=== PATIENT | female | born 1995 | race Caucasian/White ===

== ENCOUNTER 2017-01-19 00:41 | Emergency (ER) | payer BC, MEDICAID ==
[2017-01-19] MEDS ORDERED: PYRIDOXINE HCL INJ 100 MG/1 ML VIAL IM ONE (04:25)
[2017-01-19] MEDS ORDERED: FAMOTIDINE 20 MG TABLET PO ONE (04:26)
--- NOTE | 2017-01-19 04:30 | ER Document Report ---
ED GI/ - General Chief Complaint: Vomiting Stated Complaint: NAUSEA,VOMITING BLOOD,DIFFICULTY SWALLOWING Time seen by provider: 04:26 Mode of Arrival: Ambulatory Information source: Patient Notes: 21-year-old female presents to ED for nausea and vomiting this evening after she ate some tater tots and one of them felt like it got stuck in at that. She has had a sore throat since this time and felt like she vomited a little bit of blood after taken on the tater tot. 7 weeks with her first child and has been nauseated since she found her she was . TRAVEL OUTSIDE OF THE [place] IN LAST 30 DAYS: No - HPI Patient complains to provider of: , Vomiting, Other - Sore throat after choking on a tater tot Onset: This evening Timing/Duration: Sudden Quality of pain: Other - Sore throat Severity at maximum: Severe Severity in ED: Mild Pain Level: 2 LMP: 7 weeks : 1 Associated symptoms: Nausea, Vomiting, Other - Sore throat after choking on a tater tot Exacerbated by: Denies Relieved by: Denies Similar symptoms previously: Yes - yes to the nausea vomiting noted to the sore throat Recently seen / treated by doctor: Yes - Related Data Allergies/Adverse Reactions: No Known Allergies Allergy (Verified 07/22/16 15:44) Past Medical History - General Information source: Patient - Social History Smoking Status: Never Smoker Cigarette use (# per day): No Chew tobacco use (# tins/day): No Smoking Education Provided: No Frequency of alcohol use: None Drug Abuse: None Lives with: Family Family History: Reviewed & Not Pertinent Patient has suicidal ideation: No Patient has homicidal ideation: No - Past Medical History Cardiac Medical History: Reports: None Pulmonary Medical History: Reports: None EENT Medical History: Reports: None Neurological Medical History: Reports: None Endocrine Medical History: Reports: None Renal/ Medical History: Reports: None Malignancy Medical History: Reports: None GI Medical History: Reports: None Musculoskeltal Medical History: Reports None Skin Medical History: Reports None Psychiatric Medical History: Reports: None Traumatic Medical History: Reports: None Infectious Medical History: Reports: None Surgical Hx: Negative Past Surgical History: Reports: None - Immunizations Hx Diphtheria, Pertussis, Tetanus Vaccination: Yes Review of Systems - Review of Systems Constitutional: No symptoms reported EENT: Throat pain - After choking on a tater tot Cardiovascular: No symptoms reported Respiratory: No symptoms reported Gastrointestinal: Nausea, Vomiting Genitourinary: No symptoms reported Female Genitourinary: - 7 weeks Musculoskeletal: No symptoms reported Skin: No symptoms reported Hematologic/Lymphatic: No symptoms reported Neurological/Psychological: No symptoms reported Physical Exam - Vital signs Vitals: Temp Pulse Resp BP 98.5 F 80 20 117/71 01/19/17 00:53 01/19/17 00:53 01/19/17 00:53 01/19/17 00:53 Interpretation: Normal - General General appearance: Appears well, Alert - HEENT Head: Normocephalic, Atraumatic Eyes: Normal Pupils: PERRL Ears: Normal External canal: Normal Tympanic membrane: Normal Sinus: Normal Nasal: Normal Mouth/Lips: Normal Mucous membranes: Normal Pharynx: Normal Neck: Normal - Respiratory Respiratory status: No respiratory distress Chest status: Nontender Breath sounds: Normal Chest palpation: Normal - Cardiovascular Rhythm: Regular Heart sounds: Normal auscultation Murmur: No - Abdominal Inspection: Normal Distension: No distension Bowel sounds: Normal Tenderness: Nontender Organomegaly: No organomegaly - Back Back: Normal, Nontender - Extremities General upper extremity: Normal inspection, Nontender, Normal color, Normal ROM , Normal temperature General lower extremity: Normal inspection, Nontender, Normal color, Normal ROM , Normal temperature, Normal weight bearing. No: Yovana's sign - Neurological Neuro grossly intact: Yes Cognition: Normal Orientation: AAOx4 Sanders Coma Scale Eye Opening: Spontaneous Sanders Coma Scale Verbal: Oriented Sanders Coma Scale Motor: Obeys Commands Sanders Coma Scale Total: 15 Speech: Normal Motor strength normal: LUE, RUE, LLE, RLE Sensory: Normal - Psychological Associated symptoms: Normal affect, Normal mood - Skin Skin Temperature: Warm Skin Moisture: Dry Skin Color: Normal Course - Re-evaluation Re-evalutation: 01/19/17 05:23 Patient states she feels much better after her Pepcid and vitamin B 6. She states she was able to drink the water and eat luly crackers with no difficulty. She just was afraid that something was wrong because her throat was hurting after choking on the tater tot. - Vital Signs Vital signs: Temp Pulse Resp BP Pulse Ox 98.5 F 80 20 117/71 01/19/17 00:53 01/19/17 00:53 01/19/17 00:53 01/19/17 00:53 Discharge - Discharge Clinical Impression: Nausea and vomiting during prior to 22 weeks gestation, sore throat after choking on a tater tot Condition: Stable Disposition: HOME, SELF-CARE Additional Instructions: VOMITING: Vomiting (or nausea without vomiting) can be caused by many other different problems. It can mean that something's wrong with the stomach, such as ulcers or inflammation or the intestinal tract, such as appendicitis. But it can also be a symptom of a problem that has nothing to do with the stomach or intestines. Vomiting is common with severe headaches, earaches, tonsillitis, and kidney infections, etc. We see it with pneumonia or heart attacks. Drugs can cause nausea and vomiting. Many abdominal problems cause vomiting; for example, gallstones, kidney stones, pancreatitis, and intestinal obstruction ( blocked bowels). In most cases, curing the vomiting depends on fixing the problem that caused it. For temporary relief, we may use an anti-nausea medicine. For home use, we can prescribe suppositories, chewable pills, pills that dissolve in the mouth, or liquid anti-nausea drugs. If the vomiting seems to be caused by a problem in the stomach, acid-suppressing drugs may be prescribed as well. It's important to avoid dehydration. Sip small amounts of clear liquids ( soft drinks, tea, broth, etc) . Try to take fluids frequently even if you are vomiting to prevent dehydration. Take increasing amounts of fluid and when liquids are being consumed successfully, advance to small amounts of bland food (toast, soups, mashed potatoes, etc.) until you are able to resume a regular diet. Avoid aspirin, tobacco, and alcohol. If the vomiting worsens, if the problem that's making you vomit worsens, or if there's evidence of bleeding in the stomach (such as black, tarry stool, or bloody or black vomit), you should return immediately. Also, return if abdominal pain worsens or becomes localized to one area or you develop high fever. Call your doctor if you aren't improved in 24 hours. You were given vitamin B 6 IM for your nausea and vomiting and Pepcid for your heartburn. You stated you had some sore throat after a few choked on a tater tot. Please be sure to chew your food completely to prevent further choking. Follow-up with your HEEL CUTTER. FOLLOW-UP CARE: If you have been referred to a physician for follow-up care, call the physician s office for an appointment as you were instructed or within the next two days. If you experience worsening or a significant change in your symptoms, notify the physician immediately or return to the Emergency Department at any time for re-evaluation. Forms: Return to Work Referrals: DARION SHEN MD [Primary Care Provider] - Follow up as needed [facility] [Provider Group] - Follow up as needed
[2017-01-19] MEDS ORDERED: PYRIDOXINE HCL INJ 100 MG/1 ML VIAL ONE (04:57)
[2017-01-19 06:11] LABS: APPEARANCE,URINE SLIGHTLY-CLOUDY; BILIRUBIN,URINE NEGATIVE (NEGATIVE); GLUCOSE, URINE NEGATIVE (NEGATIVE); KETONES,URINE 80 mg/dL (NEGATIVE); LEUKOCYTE ESTERASE,URINE NEGATIVE (NEGATIVE); NITRITE,URINE NEGATIVE (NEGATIVE); PROTEIN,URINE NEGATIVE (NEGATIVE); URINE SPECIFIC GRAVITY 1.025; UROBILINOGEN,URINE NEGATIVE mg/dL (<2.0)
[2017-01-19 06:13] VITALS: BP 105/62
== END 2017-01-19 06:06 | disposition home or self-care (01) ==
LOC: ER 00:41
DX: R11.2 Nausea with vomiting, unspecified (principal); J02.9 Acute pharyngitis, unspecified; R13.10 Dysphagia, unspecified; Z3A.01 Less than 8 weeks gestation of pregnancy
CPT/HCPCS: 99284; 96372; 81001; J3415

== ENCOUNTER → 2017-03-10 | Outpatient (CLI) | payer BC | LOC: RAD 16:34 | PROVIDERS: ATTEND Nurse Practitioner Family | DX: O07.4 Failed attempted termination of pregnancy without complication (principal) | CPT/HCPCS: 36415; 76805; 84702; 84703 ==

== ENCOUNTER 2017-05-03 22:43 | Emergency (ER) | payer BC, MEDICAID ==
[2017-05-03] MEDS ORDERED: NORMAL SALINE 1000 ML 1,000 ML IV ONE (23:06)
[2017-05-03] MEDS ORDERED: DIPHENHYDRAMINE HCL 50 MG/ML VIAL IV ONE (23:06)
--- NOTE | 2017-05-03 23:12 | ER Document Report ---
ED General - General Mode of Arrival: Ambulatory Information source: Patient TRAVEL OUTSIDE OF THE [place] 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 Patient reports that she was looking at the computer screen when symptoms precipitated and continued to work for approximately 20 minutes despite having difficulty focusing and seeing. She claims that the episode lasted approximately 40 minutes. Patient states that she is currently feeling better and her vision has improved, but is feeling generalized numbness and 'cloudy' at this time. Patient also reports to having uncontrollable mouth and facial twitching while waiting to be seen that lasted approximately 5 minutes. Patient denies nausea or double vision. Patient is taking medication, but is not on any other medication. (AMEENA BHATIA) - Related Data Allergies/Adverse Reactions: No Known Allergies Allergy (Verified 07/22/16 15:44) Past Medical History - General Information source: Patient - Social History Smoking Status: Never Smoker Family History: Reviewed & Not Pertinent Renal/ Medical History: Reports: Hx Ovarian Cysts - right dermoid ovarian cyst ; simple left ovarian cyst. Denies: Hx Peritoneal Dialysis Past Surgical History: Reports: Hx Gynecologic Surgery - right dermoid ovarian cyst removal; July 2016 - Immunizations Hx Diphtheria, Pertussis, Tetanus Vaccination: Yes <AMEENA BHATIA - Last Filed: 05/03/17 23:06> Review of Systems - Review of Systems Constitutional: No symptoms reported EENT: See HPI, Other - seeing 'bright' light to bilateral eyes. denies: Double vision Cardiovascular: No symptoms reported Respiratory: No symptoms reported Gastrointestinal: No symptoms reported Genitourinary: No symptoms reported Female Genitourinary: No symptoms reported Musculoskeletal: See HPI, Other - uncontrollable mouth and facial movements Skin: No symptoms reported Hematologic/Lymphatic: No symptoms reported Neurological/Psychological: See HPI, Numbness - generalized, Other - 'cloudy' thinking -: Yes All other systems reviewed and negative <BHATIAAMEENA - Last Filed: 05/03/17 23:06> Physical Exam - General General appearance: Alert In distress: None - HEENT Head: Normocephalic, Atraumatic Eyes: Normal, Other - Eyes move conjugately. No lateral gaze nystagmus or double vision when focusing eyes. Extraocular movements intact: Yes Eyelashes: Normal Pupils: PERRL Neck: Normal. No: Carotid bruit - Respiratory Respiratory status: No respiratory distress Breath sounds: Normal - Cardiovascular Rhythm: Regular Heart sounds: Normal auscultation - Abdominal Inspection: Normal Distension: No distension Tenderness: Nontender - Back Back: Normal - Extremities General upper extremity: Normal inspection, Normal ROM General lower extremity: Normal inspection, Normal ROM - Neurological Neuro grossly intact: Yes Cranial nerves: No: Gaze palsy Additional motor exam normals: Other - no facial motor twitches - Psychological Associated symptoms: Normal affect, Normal mood - Skin Skin Temperature: Warm Skin Moisture: Dry Skin Color: Normal <AMEENA BHATIA - Last Filed: 05/03/17 23:06> Course <AMEENA BHATIA - Last Filed: 05/03/17 23:06> - Laboratory Result Diagrams: 05/03/17 22:59 05/03/17 22:59 <MARY ANN DONNELLY - Last Filed: 05/04/17 00:50> - Re-evaluation Re-evalutation: 05/04/17 00:47 Patient is sleeping soundly. She is awakened for repeat exam. She is feeling back to normal at this time with no visual disturbance, no dizziness, no facial twitching. (MARY ANN DONNELLY) - Vital Signs Vital signs: Temp Pulse Resp BP Pulse Ox 99.0 F 88 20 128/81 H 100 05/03/17 22:52 05/03/17 22:52 05/03/17 22:52 05/03/17 22:52 05/03/17 22:52 - Laboratory Laboratory results interpreted by me: 05/03/17 05/03/17 22:59 22:59 RBC 3.63 L Hgb 10.5 L Hct 31.7 L Creatinine 0.47 L Discharge <AMEENA BHATIA - Last Filed: 05/03/17 23:06> <MARY ANN DONNELLY - Last Filed: 05/04/17 00:50> - Discharge Clinical Impression: Visual disturbance, Facial twitching, Second trimester Condition: Stable Disposition: HOME, SELF-CARE Additional Instructions: No clear explanation for your symptoms was found. This may have been a migraine variant type of event. You should drink plenty of fluids and get plenty of rest. With your [facility] [employer]PATCH[facility] doctors in the next few days. Return if you have recurrence of those symptoms. RETURN TO THE EMERGENCY ROOM IF ANY NEW OR WORSENING SYMPTOMS. Referrals: AMBAR CUNHA MD [Primary Care Provider] - Follow up in 3-5 days Scribe Attestation: 05/04/17 00:50 I personally performed the services described in the documentation, reviewed and edited the documentation which was dictated to the scribe in my presence, and it accurately records my words and actions. (MARY ANN DONNELLY) Scribe Documentation - Scribe Written by Eleazar:: Eleazar Sullivan, 05/03/2017 [id number] acting as scribe for :: Lawrence <AMEENA BHATIA - Last Filed: 05/03/17 23:06>
[2017-05-03 23:14] LABS: ABSOLUTE EOSINOPHILS # (AUTO) 0.1 10^3/uL (0.0-0.6); ABSOLUTE LYMPHOCYTES (AUTO) 2.4 10^3/uL (0.5-4.7); ABSOLUTE MONOCYTES (AUTO) 0.7 10^3/uL (0.1-1.4); BASOPHILS % (AUTO) 0.2 % (0-2); EOSINOPHILS % (AUTO) 1.4 % (0-6); HEMATOCRIT 31.7 % (36.0-47.0); HEMOGLOBIN 10.5 g/dL (12.0-15.5); HGB HCT DIFFERENCE -0.2; LYMPHOCYTES % (AUTO) 23.6 % (13-45); MEAN CORPUSCULAR HEMOGLOBIN 29.1 pg (27.0-33.4); MEAN CORPUSCULAR HGB CONC 33.3 g/dL (32.0-36.0); MEAN CORPUSCULAR VOLUME 87 fl (80-97); MONOCYTES % (AUTO) 6.4 % (3-13); RED BLOOD COUNT 3.63 10^6/uL (3.72-5.28); RED CELL DISTRIBUTION WIDTH 13.5 % (11.5-14.0); SEGMENTED NEUTROPHILS % (AUTO) 68.4 % (42-78); WHITE BLOOD COUNT 10.3 10^3/uL (4.0-10.5)
[2017-05-03 23:27] LABS: ALANINE AMINOTRANSFERASE 32 U/L (9-52); ALBUMIN 3.8 g/dL (3.5-5.0); ALKALINE PHOSPHATASE 60 U/L (38-126); ANION GAP 9 (5-19); ASPARTATE AMINO TRANSFERASE 24 U/L (14-36); BILIRUBIN,DIRECT 0.2 mg/dL (0.0-0.4); BILIRUBIN,TOTAL 0.4 mg/dL (0.2-1.3); BLOOD UREA NITROGEN 10 mg/dL (7-20); CALCIUM 9.4 mg/dL (8.4-10.2); CARBON DIOXIDE 22 mmol/L (22-30); CHLORIDE 106 mmol/L (98-107); CREATININE RESULT 0.47 mg/dL (0.52-1.25); GLUCOSE 82 mg/dL (75-110); MAGNESIUM 1.6 mg/dL (1.6-2.3); POTASSIUM 3.8 mmol/L (3.6-5.0); SODIUM 137.1 mmol/L (137-145); TOTAL PROTEIN 6.8 g/dL (6.3-8.2)
[2017-05-03 23:53] LABS: APPEARANCE,URINE SLIGHTLY-CLOUDY; BILIRUBIN,URINE NEGATIVE (NEGATIVE); GLUCOSE, URINE NEGATIVE (NEGATIVE); KETONES,URINE NEGATIVE (NEGATIVE); LEUKOCYTE ESTERASE,URINE NEGATIVE (NEGATIVE); NITRITE,URINE NEGATIVE (NEGATIVE); PROTEIN,URINE NEGATIVE (NEGATIVE); URINE SPECIFIC GRAVITY 1.004; UROBILINOGEN,URINE NEGATIVE mg/dL (<2.0)
[2017-05-04 02:29] VITALS: BP 110/61
== END 2017-05-04 02:35 | disposition home or self-care (01) ==
LOC: ER 22:43
DX: O26.92 Pregnancy related conditions, unspecified, second trimester (principal); H53.8 Other visual disturbances; R25.3 Fasciculation; R20.0 Anesthesia of skin; Z3A.22 22 weeks gestation of pregnancy
CPT/HCPCS: 99284; 96374; 36415; 82962; 83735; 85025; 80053; 81001; J1200; J7030

== ENCOUNTER 2017-07-17 16:28 | Outpatient (CLI) | payer BC, MEDICAID ==
[2017-07-17 17:28] LABS: APPEARANCE,URINE CLEAR; BILIRUBIN,URINE NEGATIVE (NEGATIVE); GLUCOSE, URINE NEGATIVE (NEGATIVE); KETONES,URINE TRACE mg/dL (NEGATIVE); LEUKOCYTE ESTERASE,URINE NEGATIVE (NEGATIVE); NITRITE,URINE NEGATIVE (NEGATIVE); PROTEIN,URINE NEGATIVE (NEGATIVE); UROBILINOGEN,URINE NEGATIVE mg/dL (<2.0)
[2017-07-17 17:38] LABS: URINE BARBITURATES SCREEN NEGATIVE; URINE METHADONE SCREEN NEGATIVE; URINE OPIATES LOW NEGATIVE; URINE PHENCYCLIDINE SCREEN NEGATIVE
--- NOTE | 2017-07-18 15:04 | RADIOLOGY REPORT (SQ) ---
EXAM DESCRIPTION: U/S OB LIMITED COMPLETED DATE/TIME: 07/17/2017 7:56 pm REASON FOR STUDY: Cervical length due to cramping at 30 weeks COMPARISON: None. TECHNIQUE: Limited transvaginal and transabdominal grayscale ultrasound for evaluation of specific r equested obstetrical parameters. LIMITATIONS: None. FINDINGS: CERVICAL LENGTH: 3.4 cm Closed. MAIRA: 14.2 cm. FHR: 135 beats per minute. PRESENTATION: Cephalic. OTHER: Fundal placenta. IMPRESSION: LIMITED OBSTETRICAL ULTRASOUND WITH MEASURED PARAMETERS DELINEATED ABOVE. Trimester of : Third trimester - 28 weeks to delivery. TECHNICAL DOCUMENTATION: JOB ID: [id number] [employer]- All Rights Reserved
== END 2017-07-17 20:24 | disposition home or self-care (01) ==
LOC: LC 16:28
PROVIDERS: ATTEND Obstetrics & Gynecology
PROC: 4A1HXCZ Monitoring of Products of Conception, Cardiac Rate, External Approach (ICD-10-PCS; principal; 2017-07-17)
DX: O47.03 False labor before 37 completed weeks of gestation, third trimester (principal); Z3A.30 30 weeks gestation of pregnancy
CPT/HCPCS: 76815; 80307; 81001

== ENCOUNTER 2017-08-18 13:55 | Outpatient (CLI) | payer BC, MEDICAID ==
[2017-08-18 14:48] LABS: APPEARANCE,URINE CLEAR; BILIRUBIN,URINE NEGATIVE (NEGATIVE); GLUCOSE, URINE NEGATIVE (NEGATIVE); KETONES,URINE NEGATIVE (NEGATIVE); LEUKOCYTE ESTERASE,URINE NEGATIVE (NEGATIVE); NITRITE,URINE NEGATIVE (NEGATIVE); PROTEIN,URINE NEGATIVE (NEGATIVE); URINE SPECIFIC GRAVITY 1.006; UROBILINOGEN,URINE NEGATIVE mg/dL (<2.0)
[2017-08-18 15:21] LABS: URINE BARBITURATES SCREEN NEGATIVE; URINE METHADONE SCREEN NEGATIVE; URINE OPIATES LOW NEGATIVE; URINE PHENCYCLIDINE SCREEN NEGATIVE
== END 2017-08-18 15:05 | disposition home or self-care (01) ==
LOC: LC 13:55
PROVIDERS: ATTEND Obstetrics & Gynecology
PROC: 4A1HXCZ Monitoring of Products of Conception, Cardiac Rate, External Approach (ICD-10-PCS; principal; 2017-08-18)
DX: O26.893 Other specified pregnancy related conditions, third trimester (principal); R10.9 Unspecified abdominal pain; Z3A.37 37 weeks gestation of pregnancy
CPT/HCPCS: 59025; 80307; 81005

== ENCOUNTER 2017-09-01 21:13 | Inpatient (IN) | payer BC, MEDICAID ==
[2017-09-01 21:54] LABS: APPEARANCE,URINE CLEAR; BILIRUBIN,URINE NEGATIVE (NEGATIVE); GLUCOSE, URINE NEGATIVE (NEGATIVE); KETONES,URINE NEGATIVE (NEGATIVE); LEUKOCYTE ESTERASE,URINE NEGATIVE (NEGATIVE); NITRITE,URINE NEGATIVE (NEGATIVE); PROTEIN,URINE NEGATIVE (NEGATIVE); URINE SPECIFIC GRAVITY 1.005; UROBILINOGEN,URINE NEGATIVE mg/dL (<2.0)
[2017-09-01 21:56] LABS: AMNISURE (ROM) POSITIVE (NEGATIVE)
[2017-09-01] MEDS ORDERED: PENICILLIN G-K 5 MILLION UNIT VIAL ONE (22:09)
[2017-09-01 22:20] LABS: URINE BARBITURATES SCREEN NEGATIVE; URINE METHADONE SCREEN NEGATIVE; URINE OPIATES LOW NEGATIVE; URINE PHENCYCLIDINE SCREEN NEGATIVE
[2017-09-01 22:27] LABS: ABSOLUTE EOSINOPHILS # (AUTO) 0.2 10^3/uL (0.0-0.6); ABSOLUTE LYMPHOCYTES (AUTO) 2.1 10^3/uL (0.5-4.7); ABSOLUTE MONOCYTES (AUTO) 0.9 10^3/uL (0.1-1.4); ABSOLUTE NEUT (AUTO) 7.7 10^3/uL (1.7-8.2); BASOPHILS % (AUTO) 0.4 % (0-2); EOSINOPHILS % (AUTO) 1.6 % (0-6); HEMATOCRIT 31.6 % (36.0-47.0); HEMOGLOBIN 11.2 g/dL (12.0-15.5); LYMPHOCYTES % (AUTO) 19.5 % (13-45); MEAN CORPUSCULAR HEMOGLOBIN 29.7 pg (27.0-33.4); MEAN CORPUSCULAR HGB CONC 35.5 g/dL (32.0-36.0); MEAN CORPUSCULAR VOLUME 84 fl (80-97); MONOCYTES % (AUTO) 7.9 % (3-13); RED BLOOD COUNT 3.77 10^6/uL (3.72-5.28); RED CELL DISTRIBUTION WIDTH 12.9 % (11.5-14.0); SEGMENTED NEUTROPHILS % (AUTO) 70.6 % (42-78); WHITE BLOOD COUNT 10.8 10^3/uL (4.0-10.5)
[2017-09-02] MEDS ORDERED: PENICILLIN G-K 5 MILLION UNIT VIAL ONE ×4 (02:03→14:14)
[2017-09-02] MEDS ORDERED: OXYTOCIN/NORMAL SALINE 20 UNIT/1,000 ML RTUINJ IV PRN ×2 (02:17→16:57)
[2017-09-02] MEDS ORDERED: RINGERS SOLUTION,LACTATED 1,000 ML IV PRN (02:17)
[2017-09-02] MEDS ORDERED: PENICILLIN G POTASSIUM 5,000,000 UNIT in DEXTROSE 5%-WATER 100 ML IV ONE (02:30)
[2017-09-02] MEDS ORDERED: OXYTOCIN/NORMAL SALINE 20 UNIT/1,000 ML RTUINJ ONE (04:02)
[2017-09-02] MEDS ORDERED: LIDOCAINE 1% INJ-PF (10 MG/ML) 30 ML SDV ONE (04:02)
[2017-09-02] MEDS ORDERED: MISOPROSTOL 0.2 MG TABLET ONE (04:02)
[2017-09-02] MEDS ORDERED: PENICILLIN G POTASSIUM 2,500,000 UNIT in DEXTROSE 5%-WATER 50 ML IV SCH (06:30)
[2017-09-02] MEDS ORDERED: PROMETHAZINE HCL INJ 25 MG/1 ML VIAL ONE (06:58)
[2017-09-02] MEDS ORDERED: NALBUPHINE HCL INJ 10 MG/1 ML AMPULE ONE (06:58)
[2017-09-02] MEDS ORDERED: PROMETHAZINE HCL INJ 25 MG/1 ML VIAL IV ONE (07:07)
[2017-09-02] MEDS ORDERED: NALBUPHINE HCL INJ 10 MG/1 ML AMPULE INJ ONE (07:07)
[2017-09-02] MEDS ORDERED: EPHEDRINE SULFATE INJ 50 MG/1 ML AMPULE ONE (10:24)
[2017-09-02] MEDS ORDERED: BUPIVACAINE HCL 0.25 % INJ/PF (2.5 MG/1 ML) 30 ML VIAL ONE (10:24)
[2017-09-02] MEDS ORDERED: FENTANYL/BUPIVACAINE/NS/PF 200 MCG/100 ML RTUINJ EPI ONE (10:24)
--- NOTE | 2017-09-02 11:45 | L&D Progress Notes ---
PROGRESS NOTES Datetime Report Generated by CPN: 09/02/2017 11:45 PROGRESS NOTE Impression: Normal Progression of Labor Procedures: Sterile Vag Exam Plan: Continue Present Management Comment: Epidural in place-patient more comfortable. Will continue with Pitocin. VAGINAL EXAM Dilatation: 2 Dilatation: 1 Effacement: 95 Effacement: 90 Station: 0 Station: -1 MEMBRANES Membranes: Ruptured Membranes: Ruptured Amniotic Fluid Color: Clear Amniotic Fluid Color: Clear FETUS A FHR - Baseline: 135 Monitoring: External US Variability: Moderate 6-25bpm Accelerations: 15X15 Decelerations: None FHR Category: Category I : 39.5 : 39.5 Presentation: Vertex SIGNATURE SIGNATURE: [id number] Assignment: Aracelis Phillips MD Signature: with User ID: [email or web address] : with User ID: [email or web address] : Alex personally evaluated and examined the patient in conjunction with the MLP and agree with the assessment, treatment plan and disposition.
[2017-09-02] MEDS ORDERED: BENZOCAINE/MENTHOL AEROSOL SPRAY 56 ML TOP PRN (16:57)
[2017-09-02] MEDS ORDERED: ACETAMINOPHEN WITH CODEINE #3 TABLET PO PRN ×2 (16:57)
[2017-09-02] MEDS ORDERED: DIPH/PERTUSS(ACELL)/TETANUS VAC/PF 0.5 ML SYR (>=10YO) IM PRN (16:57)
[2017-09-02] MEDS ORDERED: GLYCERIN/WITCH HAZEL LEAF 1 EACH MED..PAD TP PRN (16:57)
[2017-09-02] MEDS ORDERED: ACETAMINOPHEN 650 MG SUPP.RECT PR PRN (16:57)
[2017-09-02] MEDS ORDERED: MEASLES,MUMPS&RUBELLA VACC/PF 0.5 ML VIAL SUBCUT PRN (16:57)
[2017-09-02] MEDS ORDERED: PSEUDOEPHEDRINE HCL 30 MG TABLET PO PRN (16:57)
[2017-09-02] MEDS ORDERED: DIPHENHYDRAMINE HCL 25 MG CAPSULE PO PRN (16:57)
[2017-09-02] MEDS ORDERED: PROMETHAZINE HCL INJ 25 MG/1 ML VIAL IV PRN (16:57)
[2017-09-02] MEDS ORDERED: NA PHOS,M-B/NA PHOS,DI-BA (ADULT) 133 ML ENEMA PR PRN (16:57)
[2017-09-02] MEDS ORDERED: PROMETHAZINE HCL 25 MG TABLET PO PRN (16:57)
[2017-09-02] MEDS ORDERED: MAGNESIUM HYDROXIDE SUSP 30 ML UDCUP PO PRN (16:57)
[2017-09-02] MEDS ORDERED: DIBUCAINE 1% OINTMENT 28 GM TP PRN (16:57)
[2017-09-02] MEDS ORDERED: PROMETHAZINE HCL 25 MG SUPP.RECT PR PRN (16:57)
[2017-09-02] MEDS ORDERED: ZOLPIDEM TARTRATE 5 MG TABLET PO PRN (16:57)
[2017-09-02] MEDS ORDERED: AMPICILLIN SOD/SULBACTAM 3 GM VIAL IV ONE (17:23)
[2017-09-02] MEDS ORDERED: AMPICILLIN SOD/SULBACTAM 3 GM VIAL ONE (17:29)
[2017-09-02] MEDS ORDERED: IBUPROFEN 800 MG TABLET ONE (17:30)
[2017-09-02] MEDS ORDERED: AMPICILLIN SOD/SULBACTAM 3 GM VIAL IV SCH (17:35)
--- NOTE | 2017-09-02 17:45 | Delivery Summary ---
Del Sum A-C Datetime Report Generated by CPN: 09/02/2017 17:45 DELIVERY PERSONNEL DELIVERY PERSONNEL: [id number] Delivery Doctor:: Patricia Rousseau CNM Labor and Delivery Nurse:: Delores Aguero RNsawmilling operator Nurse:: MIRTHA Hall Nursery Nurse:: Demetrio Moran RN Changer Fixer/JUSTUS: Emily Heart CNA II Additional Personnel: : Mark Harry RN MATERNAL INFORMATION Delivery Anesthesia: Epidural Medications After Delivery: Pitocin Bolus-Please Comment; Pitocin Drip 20 Units/1000ml NSS Meds After Delivery Comment: Pitocin 20 Units in 1 L NS bolusing per order Estimated Blood Loss (ml): 250 Maternal Complications: Premature Rupture of Membranes Other Maternal Complications: Maternal temp-101.4 Provider Comments: viable female in vertex OA to GAGE at 1609 under epidural anesthesia. Spontaneous respirations and cry. 2-vessel cord. Apgars 7-8. Cord clamped x2, after 2 min delay, then cut by CNM as baby pink but not crying vigorously. Placenta, membranes, and cord expelled at 1613, Moyer presentation. 2nd degree vaginal-perineal laceration repaired as noted above, under epidural anesthesia. FF at U-3, lochia small. Patient tolerated procedure well. Maternal temp noted after delivery. Baby taken to nursery with elevated temp. Patient tolerated procedure well. LABOR SUMMARY EDC: 09/04/2017 00:00 No. Babies in Womb: 1 Attempted: No Labor Anesthesia: Epidural LABOR INFORMATION Reason for Induction: Premature Rupture of Membranes Onset of Labor: 09/02/2017 11:00 Complete Dilatation: 09/02/2017 14:54 Oxytocin: Induction Group B Beta Strep: positive Antibiotics # of Doses: 5 Antibiotics Time of Last Dose: 1415 Name of Antibiotic Given: Penicillin Steroids Given: None Reason Steroids Not Administered: Not Applicable MEMBRANES Membranes Rupture Method: Spontaneous Rupture of Membranes: 09/01/2017 20:45 Length of Rupture (hr): 19.40 Amniotic Fluid Color: Clear Amniotic Fluid Amount: Small Amniotic Fluid Odor: Normal STAGES OF LABOR Stage 1 hr: 3 Stage 1 min: 54 Stage 2 hr: 1 Stage 2 min: 15 Stage 3 hr: 0 Stage 3 min: 4 Total Time in Labor hr: 5 Total Time in Labor min: 13 VAGINAL DELIVERY Episiotomy: None Laceration #1: Perineal; Vaginal Laceration Extension #1: Second Degree Laceration Repair: Yes Laceration Repair Note: Continuous stitches w 2-0 Chromic Sponge Count Correct: N/A Sharps Count Correct: Yes CSECTION DELIVERY Primary Indication: N/A Secondary Indication: N/A CSection Incidence: N/A Labor: N/A Elective: N/A CSection Incision: N/A BABY A INFORMATION Delivery Date/Time: 09/02/2017 16:09 Method of Delivery: Vaginal Born in Route : No : N/A Forceps: N/A Vacuum Extraction: N/A Shoulder Dystocia : No PRESENTATION/POSITION BABY A Presentation: Cephalic Cephalic Presentation: Vertex Vertex Position: Right Occipital Anterior Breech Presentation: N/A PLACENTA INFORMATION BABY A Placenta Delivery Time : 09/02/2017 16:13 Placenta Method of Delivery: Spontaneous Placenta Status: Delivered SCORES BABY A Heart Rate 1 min: >100 bpm Resp Effort 1 min: Slow, Irregular Reflex Irritability 1 min: Grimace Muscle Tone 1 min: Active Motion Color 1 min: Body [place], Extremities Blue Resuscitation Effort 1 min: Tactile Stimulation SCORE 1 MIN: 7 Heart Rate 5 min: >100 bpm Resp Effort 5 min: Slow, Irregular Reflex Irritability 5 min: Cough or Sneeze or Pulls Away Muscle Tone 5 min: Some Flexion of Extremities Color 5 min: Completely [place] SCORE 5 MIN: 8 INFORMATION BABY A Gestational Age at Delivery: 39.5 Gestational Status: Full Term- 39- 40.6 Weeks Infant Outcome : Liveborn Condition : Stable Sex: Female IDENTIFICATION BABY A Verification Date/Time: 09/02/2017 16:22 ID Band Number: [id number] Mother's Name Verified: Yes RN Verifying : CDerick Aguero, FAHEEM, Esther Harry RN WEIGHT/LENGTH BABY A Birthweight (gm): 3630 Infant Weight (lb): 8 Weight (oz): 0 Length (in): 21.00 Infant Length (cm): 53.34 CORD INFORMATION BABY A No. Cord Vessels: 3 Nuchal Cord : N/A Cord Blood Taken: Yes-For Storage (Mom's Blood type +) Infant Suction: Mouth; Nose ASSESSMENT BABY A Infant Complications: None Skin to Skin: Yes Skin to Skin Time (min): 10 BABY B INFORMATION : N/A SIGNATURES Assignment: Aracelis Phillips MD Signature: with User ID: [email or web address] : I personally evaluated and examined the patient in conjunction with the MLP and agree with the assessment, treatment plan and disposition.
--- NOTE | 2017-09-02 18:36 | Admission Physical ---
Datetime Report Generated by CPN: 09/02/2017 18:36 CURRENT ADMISSION Chief Complaint: Suspected Ruptured Membranes Indication for Induction: Not Applicable Indication for Induction: Term, Intrauterine ; No Active Labor; Ruptured Membranes Admit Plan: Admit to Unit; Initiate Labor Augmentation Protocol ALLERGIES Medication Allergies: No Medication Allergies: No Known Allergies (09/01/2017) Medication Allergies: No Known Allergies (07/17/2017) Medication Allergies: No Known Allergies (07/22/2016) Latex: No Latex Allergies Food Allergies: no Environmental Allergies: no OBSTETRICAL HISTORY EDC: 09/04/2017 00:00 : 1 Para: 0 Term: 0 : 0 SAB: 0 IAB: 0 Ectopic: 0 Livin Cesareans: 0 VBACs: 0 Multiple Births: 0 Gestational Diabetes: No Rh Sensitization: No Incompetent Cervix: No LION: No Infertility: No ART Treatment: No Uterine Anomaly: No IUGR: No Hx Previous C/S: No Macrosomia: No Hx Loss/Stillborn: No PIH: No Hx : No Placenta Previa/Abruption: No Depression/PP Depression: No PTL/PROM: No Post Hemorrhage: No Current Procedures: Ultrasound; NST Obstetrical History Comments: G1: current SEE RECORDS Alcohol: No Marijuana : No Cocaine: No Other Illicit Drugs: No Cigarettes: Never Smoker. [id number] MEDICAL HISTORY Diabetes: No Blood Transfusion: No Pulmonary Disease (Asthma, TB): No Breast Disease: No Hypertension: No Sql Ssrs Developer Surgery: No Heart Disease: No Hosp/Surgery: Yes Autoimmune Disorder: No Anesthetic Complications: No Kidney Disease: No Abnormal Pap Smear: No Neuro/Epilepsy: No Psychiatric Disorders: Yes Other Medical Diseases: No Hepatitis/Liver Disease: No Significant Family History: No Varicosities/Phlebitis: No Trauma/Violence : No Thyroid Dysfunction: No Medical History Comments: RA lap R cystectomy _ L ovarian cystectomy 07/2016; depression INFECTIOUS HISTORY Gonorrhea: Yes Genital Herpes: No Chlamydia: Yes Tuberculosis: No Syphilis: No Hepatitis: No HIV/AIDS Exposure: No Rash or Viral Illness: No HPV: No Infectious History Comments: gonorrhea, chlamydia 03/2016 PHYSICAL EXAM General: Normal HEENT: Normal Neurologic: Normal Thyroid: Deferred Heart: Normal Lungs: Normal Breast: Deferred Back: Normal Abdomen: Normal Genitourinary Exam: Normal Extremities: Normal DTRs: Normal Pelvic Type: Adequate Vital Signs: Reviewed; Within Normal Limits VAGINAL EXAM Dilatation: 2 Dilatation: 1 Effacement: 95 Effacement: 90 Station: 0 Station: -1 MEMBRANES Membranes: Ruptured Membranes: Ruptured Amniotic Fluid Color: Clear Amniotic Fluid Color: Clear FETUS A EGA: 39.5 Monitoring: External US FHR- Baseline: 140 Variability: Moderate 6-25bpm Accelerations: 15X15 Decelerations: None FHR Category: Category I Presentation: Vertex PLANS FOR LABOR AND DELIVERY Labor and Delivery: None Pain Management: Epidural Feeding Preference: Breast Benefit of Breast Feed Discussed: Yes Circumcision: N/A INFORMED CONSENT Signature: with User ID: [email or web address] : I personally evaluated and examined the patient in conjunction with the MLP and agree with the assessment, treatment plan and disposition. : I personally evaluated and examined the patient in conjunction with the MLP and agree with the assessment, treatment plan and disposition.
[2017-09-02] MEDS: FERROUS SULFATE 325 MG TABLET PO SCH (20:16)
[2017-09-02] MEDS: DOCUSATE SODIUM 100 MG CAPSULE PO SCH (20:16)
[2017-09-02] MEDS: IBUPROFEN 800 MG TABLET PO SCH (22:47)
[2017-09-02] MEDS: FAMOTIDINE 20 MG TABLET PO SCH (22:47)
[2017-09-03] MEDS: AMPICILLIN SODIUM/SULBACTAM NA 3 GM in NORMAL SALINE 100 ML IV SCH ×2 (01:52→09:39)
[2017-09-03] MEDS: IBUPROFEN 800 MG TABLET PO SCH ×3 (06:17→21:08)
[2017-09-03 08:18] LABS: HEMATOCRIT 26.8 % (36.0-47.0); HGB HCT DIFFERENCE 0.5; MEAN CORPUSCULAR HEMOGLOBIN 29.2 pg (27.0-33.4); MEAN CORPUSCULAR HGB CONC 33.9 g/dL (32.0-36.0); MEAN CORPUSCULAR VOLUME 86 fl (80-97); RED BLOOD COUNT 3.11 10^6/uL (3.72-5.28); WHITE BLOOD COUNT 12.5 10^3/uL (4.0-10.5)
--- NOTE | 2017-09-03 08:37 | PDOC PROGRESS REPORT ---
Subjective-OB Subjective: Post Delivery Day: 1 22 year old. Denies any needs at this time, states lochia is stable, pain well controlled, voiding without difficulty. Physical Exam (OB) Vital Signs: Temp Pulse Resp BP Pulse Ox 98.1 F 101 H 18 117/66 98 09/03/17 04:06 09/03/17 04:06 09/03/17 04:06 09/03/17 04:06 09/03/17 04:06 Intake & Output 09/02/17 09/03/17 09/04/17 06:59 06:59 06:59 Weight 95.2 kg - Lochia Lochia Amount: Small 10-25 ml Lochia Color: Rubra/Red - Abdomen Description: Soft, Round Hernia Present: No Fundal Description: Firm, Midline Fundal Height: u/u - u/2 Assessment and Plan(PN) - Assessment and Plan (1) Vaginal delivery Is this a current diagnosis for this admission?: Yes Plan: routine pp care cbc pending - Time Spent with Patient Time with patient: Less than 15 minutes Critical Time spent with patient: Less than 15 minutes Medications reviewed and adjusted accordingly: Yes - Disposition Anticipated Discharge: Home Within: within 24 hours
[2017-09-03 08:55] LABS: HEMOGLOBIN 9.1 g/dL (12.0-15.5)
[2017-09-03] MEDS: PRENATAL VITAMIN W-O CA NO5/FE FUMARATE/FA CAPSULE PO SCH (09:32)
[2017-09-03] MEDS: DOCUSATE SODIUM 100 MG CAPSULE PO SCH ×2 (09:33→17:55)
[2017-09-03] MEDS: FERROUS SULFATE 325 MG TABLET PO SCH ×2 (09:33→17:55)
[2017-09-03] MEDS: SENNOSIDES/DOCUSATE 8.6-50 MG 1 EACH TABLET PO SCH (09:33)
[2017-09-03] MEDS: FAMOTIDINE 20 MG TABLET PO SCH ×2 (09:33→21:08)
[2017-09-03] MEDS ORDERED: LORATADINE 10 MG TABLET PO ONE (14:00)
[2017-09-04] MEDS: IBUPROFEN 800 MG TABLET PO SCH ×2 (06:03→13:53)
[2017-09-04 08:38] VITALS: BP 132/75
[2017-09-04] MEDS: DOCUSATE SODIUM 100 MG CAPSULE PO SCH ×2 (09:27→18:06)
[2017-09-04] MEDS: PRENATAL VITAMIN W-O CA NO5/FE FUMARATE/FA CAPSULE PO SCH (09:27)
[2017-09-04] MEDS: FERROUS SULFATE 325 MG TABLET PO SCH ×2 (09:27→18:06)
[2017-09-04] MEDS: FAMOTIDINE 20 MG TABLET PO SCH (09:28)
[2017-09-04] MEDS: SENNOSIDES/DOCUSATE 8.6-50 MG 1 EACH TABLET PO SCH (09:28)
[2017-09-04] MEDS ORDERED: LORATADINE 10 MG TABLET PO ONE (10:00)
--- NOTE | 2017-09-04 12:03 | PDOC DISCHARGE SUMMARY ---
Final Diagnosis Discharge Date: 09/04/17 - Final Diagnosis (1) Vaginal delivery Is this a current diagnosis for this admission?: Yes Discharge Data - Discharge Medication Home Medications: No122/Iron/Folic Acid [ Multi Tablet] 1 each PO DAILY 07/17/17 Ranitidine HCl [Zantac 150 mg Tablet] 1 tab PO DAILY PRN 08/18/17 Reason(s) for Admission: PROM, Group B Strep Positive Procedures: NST Intrapartum Procedure(s): Spontaneous Vaginal Delivery Complication(s): Laceration-Vaginal, Laceration-Perineal Laceration-Degree: 2nd - Diagnosis Test Laboratory: Temp Pulse Resp BP Pulse Ox 97.9 F 100 18 132/75 H 98 09/04/17 08:38 09/04/17 08:35 09/04/17 08:35 09/04/17 08:35 09/04/17 08:35 09/01/17 09/01/17 09/03/17 21:33 22:13 07:12 RBC 3.77 3.11 L Hgb 11.2 L 9.1 L D Hct 31.6 L 26.8 L Urine Opiates Screen NEGATIVE - Discharge information/Instructions Discharge Activity: Activity As Tolerated, Balance Activity w/Rest, No Lifting Over 10 Pounds, No Lifting/Push/Pulling, Pelvic Rest, No tub bath Discharge Diet: Regular Disposition: HOME, SELF-CARE Follow up with: [facility] in: 4
== END 2017-09-04 19:30 | disposition home or self-care (01) | DRG 775 ==
LOC: LC 21:13 → LR 21:59 → 2S 09-02 18:30
PROVIDERS: ADMIT Obstetrics & Gynecology; ATTEND Obstetrics & Gynecology
PROC: 10E0XZZ Delivery of Products of Conception, External Approach (ICD-10-PCS; principal; 2017-09-02)
PROC: 0KQM0ZZ Repair Perineum Muscle, Open Approach (ICD-10-PCS; 2017-09-02)
DX: O42.02 Full-term premature rupture of membranes, onset of labor within 24 hours of rupture (principal); O99.824 Streptococcus B carrier state complicating childbirth; O70.1 Second degree perineal laceration during delivery; Z3A.39 39 weeks gestation of pregnancy; Z37.0 Single live birth
CPT/HCPCS: 36415; 80307; 81005; 84112; 85025; 85027; 86592; 86850; 86900; 86901; 88307; J0295; J2300; J2540; J2550; J2590; J3490

== ENCOUNTER 2018-07-14 23:21 | Emergency (ER) | payer BC, MEDICAID ==
[2018-07-14 23:37] VITALS: BP 125/83
[2018-07-14] MEDS ORDERED: KETOROLAC TROMETHAMINE INJ/PF 30 MG/1 ML SDV IV ONE (23:49)
[2018-07-14] MEDS ORDERED: ONDANSETRON HCL INJ/PF 4 MG/2 ML SDV IV ONE (23:49)
[2018-07-14] MEDS ORDERED: NORMAL SALINE 1000 ML 1,000 ML IV ONE (23:50)
--- NOTE | 2018-07-14 23:51 | ER Document Report ---
ED Medical Screen (RME) - General Chief Complaint: Other Stated Complaint: NAUSEA/ RIGHT SIDE PAIN Time Seen by Provider: 07/14/18 23:49 Notes: 23-year-old female, chief complaint of sharp right upper quadrant pain with nausea, symptoms started at 8 PM and has not quit, symptoms started about 1 hour after eating beef stew. She denies history of the same, she denies vomiting, fever, other areas of pain. 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 TRAVEL OUTSIDE OF THE [place] IN LAST 30 DAYS: No - Related Data Allergies/Adverse Reactions: No Known Allergies Allergy (Verified 09/01/17 21:25) Past Medical History - Social History Frequency of alcohol use: Occasional Renal/ Medical History: Reports: Hx Ovarian Cysts - right dermoid ovarian cyst ; simple left ovarian cyst. Denies: Hx Peritoneal Dialysis Past Surgical History: Reports: Hx Gynecologic Surgery - right dermoid ovarian cyst removal; July 2016 - Immunizations Hx Diphtheria, Pertussis, Tetanus Vaccination: Yes History of Influenza Vaccine for 08/2017 - 01/2018 Season: Refused Physical Exam - Vital signs Vitals: Temp Pulse Resp BP Pulse Ox 98.3 F 88 14 125/83 99 07/14/18 23:35 07/14/18 23:35 07/14/18 23:35 07/14/18 23:35 07/14/18 23:35 - Abdominal Tenderness: Tender - Tender in right upper quadrant and epigastric areas, remaining abdomen is benign, exam limited by sitting position Course - Vital Signs Vital signs: Temp Pulse Resp BP Pulse Ox 98.3 F 88 14 125/83 99 07/14/18 23:35 07/14/18 23:35 07/14/18 23:35 07/14/18 23:35 07/14/18 23:35
[2018-07-15 00:52] LABS: ABSOLUTE EOSINOPHILS # (AUTO) 0.1 10^3/uL (0.0-0.6); ABSOLUTE LYMPHOCYTES (AUTO) 2.6 10^3/uL (0.5-4.7); ABSOLUTE MONOCYTES (AUTO) 0.6 10^3/uL (0.1-1.4); ABSOLUTE NEUT (AUTO) 8.7 10^3/uL (1.7-8.2); BASOPHILS % (AUTO) 0.2 % (0-2); EOSINOPHILS % (AUTO) 1.1 % (0-6); HEMATOCRIT 39.4 % (36.0-47.0); HEMOGLOBIN 13.1 g/dL (12.0-15.5); LYMPHOCYTES % (AUTO) 21.4 % (13-45); MEAN CORPUSCULAR HEMOGLOBIN 28.2 pg (27.0-33.4); MEAN CORPUSCULAR HGB CONC 33.2 g/dL (32.0-36.0); MEAN CORPUSCULAR VOLUME 85 fl (80-97); MONOCYTES % (AUTO) 4.9 % (3-13); PLATELET COUNT 272 10^3/uL (150-450); RED BLOOD COUNT 4.64 10^6/uL (3.72-5.28); RED CELL DISTRIBUTION WIDTH 12.5 % (11.5-14.0); SEGMENTED NEUTROPHILS % (AUTO) 72.4 % (42-78); TOTAL CELLS COUNTED % (AUTO) 100 %
[2018-07-15 01:18] LABS: ALANINE AMINOTRANSFERASE 24 U/L (9-52); ALBUMIN 4.3 g/dL (3.5-5.0); ALKALINE PHOSPHATASE 60 U/L (38-126); ANION GAP 15 (5-19); ASPARTATE AMINO TRANSFERASE 20 U/L (14-36); BILIRUBIN,DIRECT 0.3 mg/dL (0.0-0.4); BILIRUBIN,TOTAL 0.7 mg/dL (0.2-1.3); BLOOD UREA NITROGEN 14 mg/dL (7-20); CALCIUM 9.2 mg/dL (8.4-10.2); CARBON DIOXIDE 24 mmol/L (22-30); CHLORIDE 104 mmol/L (98-107); GLUCOSE 70 mg/dL (75-110); LIPASE 131.1 U/L (23-300); POTASSIUM 3.8 mmol/L (3.6-5.0); SODIUM 142.7 mmol/L (137-145); TOTAL PROTEIN 6.6 g/dL (6.3-8.2)
[2018-07-15 01:53] LABS: APPEARANCE,URINE CLEAR; BILIRUBIN,URINE NEGATIVE (NEGATIVE); COLOR,URINE YELLOW; GLUCOSE, URINE NEGATIVE (NEGATIVE); KETONES,URINE NEGATIVE (NEGATIVE); LEUKOCYTE ESTERASE,URINE NEGATIVE (NEGATIVE); NITRITE,URINE NEGATIVE (NEGATIVE); PROTEIN,URINE NEGATIVE (NEGATIVE); URINE SPECIFIC GRAVITY 1.016; UROBILINOGEN,URINE NEGATIVE mg/dL (<2.0)
[2018-07-15] MEDS ORDERED: ONDANSETRON HCL INJ/PF 4 MG/2 ML SDV IV ONE (01:58)
[2018-07-15] MEDS ORDERED: HYDROMORPHONE HCL INJ/PF 2 MG/ML AMPULE IV ONE (01:58)
--- NOTE | 2018-07-15 02:05 | ER Document Report ---
ED General - General Chief Complaint: Other Stated Complaint: NAUSEA/ RIGHT SIDE PAIN Time Seen by Provider: 07/14/18 23:49 Notes: Patient is a pleasant 23-year-old female presents with complaint of right upper quadrant abdominal pain that started after eating beef stew. She also started having nausea and some vomiting. Symptoms started around 8 PM. No fevers. No diarrhea. No blood in her emesis. 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 She denies any pain in the right lower quadrant. She denies ever being a problem in the past. No other complaints at this time. TRAVEL OUTSIDE OF THE [place] IN LAST 30 DAYS: No - Related Data Allergies/Adverse Reactions: No Known Allergies Allergy (Verified 09/01/17 21:25) Past Medical History - Social History Smoking Status: Former Smoker Frequency of alcohol use: Occasional Drug Abuse: None Family History: Reviewed & Not Pertinent Patient has suicidal ideation: No Patient has homicidal ideation: No Renal/ Medical History: Reports: Hx Ovarian Cysts - right dermoid ovarian cyst ; simple left ovarian cyst. Denies: Hx Peritoneal Dialysis Past Surgical History: Reports: Hx Gynecologic Surgery - right dermoid ovarian cyst removal; July 2016 - Immunizations Hx Diphtheria, Pertussis, Tetanus Vaccination: Yes Review of Systems - Review of Systems Notes: My Normal Review Basic REVIEW OF SYSTEMS: CONSTITUTIONAL : Denies fever, chills, or sweats. Denies recent illness. EENT: Denies eye, ear, throat, or mouth pain or symptoms. Denies nasal or sinus congestion. RESPIRATORY: Denies cough, cold, or chest congestion. Denies shortness of breath, difficulty breathing, or wheezing. GASTROINTESTINAL: Right upper quadrant abdominal pain. Some nausea and vomiting. GENITOURINARY: Denies difficulty urinating, painful urination, burning, frequency, or blood in urine. FEMALE GENITOURINARY: Denies vaginal bleeding, abnormal or irregular periods. LMP: MUSCULOSKELETAL: Denies neck or back pain or joint pain or swelling. SKIN: Denies rash or skin lesions. NEUROLOGICAL: Denies altered mental status or loss of consciousness. Denies headache. Denies weakness or paralysis or loss of use of either side. Denies problems with gait or speech. Denies sensory or motor loss. ALL OTHER SYSTEMS REVIEWED AND NEGATIVE. Physical Exam - Vital signs Vitals: Temp Pulse Resp BP Pulse Ox 98.3 F 88 14 125/83 99 08/14/18 23:35 07/14/18 23:35 07/14/18 23:35 07/14/18 23:35 07/14/18 23:35 - Notes Notes: General Appearance: Well nourished, alert, cooperative, no acute distress, mild to moderate obvious discomfort. Vitals: reviewed, See vital signs table. Head: no swelling or tenderness to the head Eyes: PERRL, EOMI, Conjuctiva clear Mouth: No decreasd moisture Lungs: No wheezing, No rales, No rhonci, No accessory muscle use, good air exchange bilaterally. Heart: Normal rate, Regular rythm, No murmur, no rub Abdomen: Normal BS, soft, No rigidity, normal pain that is focal to the right upper quadrant. No pain to the epigastric region or lower abdomen. No guarding , no rebound, no abdominal masses, no organomegaly Extremities: strength 5/5 in all extremities, good pulses in all extremities, no swelling or tenderness in the extremities, no edema. Skin: warm, dry, appropriate color, no rash Neuro: speech clear, oriented x 3, normal affect, responds appropriately to questions. Course - Re-evaluation Re-evalutation: 07/15/18 04:58 Patient's laboratory evaluation is unremarkable. Her ultrasound does not show any evidence of problems with the gallbladder however her abdominal exam and history suggests that it is her gallbladder is causing her pain. Patient's pain and nausea are much improved after medications. I talked to her at length about avoiding fatty foods and fried foods. I will refer to surgery clinic for reevaluation. I informed her that she may eventually require a HIDA scan to further delineate the function of her gallbladder. I informed her return to ER immediately if she has recurrent pains, vomiting, fevers, or feels unwell. Patient agrees with plan will be discharged home. Dictation of this chart was performed using voice recognition software; therefore, there may be some unintended grammatical errors. - Vital Signs Vital signs: Temp Pulse Resp BP Pulse Ox 98.3 F 88 14 125/83 99 07/14/18 23:35 07/14/18 23:35 07/14/18 23:35 07/14/18 23:35 07/14/18 23:35 - Laboratory Result Diagrams: 07/15/18 00:02 07/15/18 00:02 Laboratory results interpreted by me: 07/15/18 07/15/18 00:02 00:02 WBC 12.0 H Absolute Neutrophils 8.7 H Glucose 70 L Discharge - Discharge Clinical Impression: Abdominal pain Qualifiers: Abdominal location: right upper quadrant Qualified Code(s): R10.11 - Right upper quadrant pain Condition: Good Disposition: HOME, SELF-CARE Additional Instructions: I suspect your pain is related to your gallbladder. Please follow up with the surgery clinic (Dr. Aldana). Call the office this morning to make a close follow up appointment. Please return to the ER immediately if you develop recurring pain, fevers, or recurring vomiting. Please eat a very bland diet and avoid any foods to are fried or have any fat in them. Prescriptions: Ondansetron [Zofran Odt 4 mg Tablet] 1 tab PO Q4H PRN #15 tab.rapdis PRN Reason: For Nausea/Vomiting Referrals: AMBAR ALDANA MD [ACTIVE STAFF] - Follow up in 3-5 days
--- NOTE | 2018-07-15 02:18 | RADIOLOGY REPORT (SQ) ---
EXAM DESCRIPTION: US ABDOMEN LIMITED COMPLETED DATE/TME: 07/14/2018 23:50 CLINICAL HISTORY: 23 years, Female, RUQ pain,nausea COMPARISON: None. TECHNIQUE: Grayscale and Doppler sonogram of the abdomen LIMITATIONS: None. FINDINGS: Pancreas: Visualized portion is unremarkable. Aorta: Visualized portion is unremarkable. IVC: Visualized portion is unremarkable. Liver: Parenchyma: Homogenous echotexture. Length: 15.8 cm. Main portal vein: Normal directional flow. Gallbladder: Intraluminal gallstones: Negative. Wall: No thickening. Sonographic Guallpa sign: Negative. Common bile duct: Diameter: 0.3 cm. Right kidney: Length: 11.1 cm. No hydronephrosis. IMPRESSION: Unremarkable abdominal ultrasound 2010 [employer]- All Rights Reserved
== END 2018-07-15 03:25 | disposition home or self-care (01) ==
LOC: ER 23:21
DX: R10.11 Right upper quadrant pain (principal); R11.2 Nausea with vomiting, unspecified; Z87.891 Personal history of nicotine dependence
CPT/HCPCS: 96376; 99284; 96361; 96374; 96375; 36415; 83690; 85025; 81025; 80053; 81001; 76705; J1885; J1170; J2405; J7030

== ENCOUNTER 2018-07-29 09:30 | Day surgery (SDC) | payer BC ==
[2018-07-27 10:02] LABS: HEMATOCRIT 39.3 % (36.0-47.0); HEMOGLOBIN 13.4 g/dL (12.0-15.5); MEAN CORPUSCULAR HEMOGLOBIN 28.8 pg (27.0-33.4); MEAN CORPUSCULAR HGB CONC 34.1 g/dL (32.0-36.0); MEAN CORPUSCULAR VOLUME 85 fl (80-97); PLATELET COUNT 254 10^3/uL (150-450); RED BLOOD COUNT 4.65 10^6/uL (3.72-5.28); RED CELL DISTRIBUTION WIDTH 12.5 % (11.5-14.0); WHITE BLOOD COUNT 4.2 10^3/uL (4.0-10.5)
[2018-07-27 10:32] LABS: ALANINE AMINOTRANSFERASE 23 U/L (9-52); ALBUMIN 4.2 g/dL (3.5-5.0); ALKALINE PHOSPHATASE 50 U/L (38-126); AMYLASE 39 U/L (30-110); ANION GAP 12 (5-19); ASPARTATE AMINO TRANSFERASE 21 U/L (14-36); BILIRUBIN,DIRECT 0.2 mg/dL (0.0-0.4); BILIRUBIN,TOTAL 0.7 mg/dL (0.2-1.3); BLOOD UREA NITROGEN 14 mg/dL (7-20); CALCIUM 9.4 mg/dL (8.4-10.2); CARBON DIOXIDE 28 mmol/L (22-30); CHLORIDE 103 mmol/L (98-107); GLUCOSE 101 mg/dL (75-110); POTASSIUM 4.4 mmol/L (3.6-5.0); SODIUM 142.8 mmol/L (137-145)
[~2018-07-29 09:30] MED LIST: ACETAMINOPHEN 325 MG TABLET PO PRN; CEFAZOLIN 1 GM/D5W RTU 1 GM/50 ML RTUPB IV PRN; LACTATED RINGERS 1000 ML IV PRN; LIDOCAINE 0.5% INJ-PF (5 MG/ML) 50 ML SDV SUBCUT PRN
[2018-07-29] MEDS ORDERED: DEXAMETHASONE SOD PHOSPHATE INJ 4 MG/1 ML VIAL ONE (09:45)
[2018-07-29] MEDS ORDERED: NEOSTIGMINE METHYLSULFATE 10 MG/10 ML VIAL ONE (09:45)
[2018-07-29] MEDS ORDERED: ONDANSETRON HCL INJ/PF 4 MG/2 ML SDV ONE (09:45)
[2018-07-29] MEDS ORDERED: ROCURONIUM BROMIDE INJ 50 MG/5 ML VIAL IV ONE (09:45)
[2018-07-29] MEDS ORDERED: GLYCOPYRROLATE 1 MG/5 ML SYRINGE ONE (09:45)
[2018-07-29] MEDS ORDERED: BUPIVACAINE HCL 0.5 % INJ/PF 30 ML SDV ONE (12:12)
[2018-07-29] MEDS ORDERED: FENTANYL CITRATE INJ/PF 250 MCG/5 ML AMPULE ONE (14:01)
[2018-07-29] MEDS ORDERED: ACETAMINOPHEN 1,000 MG/100 ML RTUPB IV ONE (14:02)
[2018-07-29] MEDS ORDERED: MIDAZOLAM 2 MG/2 ML INJ ONE (14:02)
[2018-07-29] MEDS ORDERED: PROPOFOL INJ 200 MG/20 ML VIAL IV ONE (14:02)
[2018-07-29] MEDS ORDERED: PROMETHAZINE HCL INJ 25 MG/1 ML VIAL IV PRN (14:41)
[2018-07-29] MEDS ORDERED: MORPHINE SULFATE 10 MG/ML INJ IV PRN (14:41)
[2018-07-29] MEDS ORDERED: DIPHENHYDRAMINE HCL 50 MG/ML VIAL IV PRN (14:41)
[2018-07-29] MEDS ORDERED: FENTANYL CITRATE INJ/PF 100 MCG/2 ML AMPUL IV PRN ×3 (14:41)
[2018-07-29] MEDS ORDERED: MEPERIDINE HCL/PF INJ 25 MG/1 ML DISP.SYRIN IV PRN (14:41)
[2018-07-29] MEDS ORDERED: OXYCODONE-ACETAMINOPHEN 5-325 MG TABLET PO PRN (15:13)
--- NOTE | 2018-07-29 15:13 | Discharge Summary ---
Discharge Summary (SDC) - Discharge Final Diagnosis: cholecystitis Date of Surgery: 07/29/18 Discharge Date: 07/29/18 Condition: Stable Treatment or Instructions: [facility] [address] [place] [id number] Discharge Instructions: Laparoscopic Surgery 1. General Information: a. DO NOT DRIVE a car or operate dangerous machinery for 3-4 days or while taking narcotic pain pills. b. DO NOT consume alcohol, tranquilizers, sleeping medications or any non- prescribed medications for 24 hours unless approved by your doctor or as long as taking narcotic prescription medications. c. DO NOT make important decisions or sign any important papers for the first 24 hours after surgery. d. When discharged home the same day of surgery have a responsible person with you for the first night. 2. Activity Restrictions: 2 weeks. a. NO heavy lifting, straining abdominal muscles, bending over a lot, yard work, house work, or sports for [address] for 3-4 days c. It is fine to go for walks, up and down steps, ride in a car. d. Elevate your head when sleeping/resting. 3. Treatment: a. You may shower 24 hours after surgery, no baths or swimming for 2 weeks. Remove band-aids or dressings before shower but leave paper strips (steri-strips ) on the skin to fall off on their own. If still on at postoperative visit they will be removed then. b. Drainage of fluid or blood is not unusual from an incision. If occurs, you can clean with peroxide and cotton ball daily and cover with dry gauze until the wound seals. c. If a lot of bleeding occurs, you can hold pressure with a gauze or cloth over the site for 10 minutes and it will usually stop. If bleeding continues you will need to call for possible evaluation in office or emergency room. 4. Medications: a. ____Tordaol 10mg_ may be taken for pain as needed, one tablet every 6 hours. b. You should resume all normal medications unless a change is specified by your doctors. 5. Diet: Begin with clear liquids and may progress to your normal diet if not nauseated. No high fat, high protein foods the day of surgery. 6. The following may occur after laparoscopic surgery: a. Shoulder or upper back ache from retained gas that should resolve in 1-2 days b. Soreness and bruising at incision sites will resolve with time. c. Scrotal swelling (labia in women) and bruising is often seen after hernia surgery. d. Sore throat e. Fatigue may last days to weeks. f. Difficulty urinating may occur and may need to come into emergency room for urinary catheter placement. 7. Notify Physician If: a. Worsening or pain not improved with pain medication b. Persistent nausea and vomiting c. Fever above 101 d. Persistent bleeding or swelling at operative site e. Unable to urinate and uncomfortable bladder 6-8 hours after surgery 8..Follow Up Care: a. Schedule a follow up appointment with your doctor for 2 weeks. In the event of any postoperative problems or questions or you may call the office during business hours or the On-Call physician evenings and weekends at [facility]. [facility] I understand the instructions for my postoperative care as described above and a copy has been given to me. Patient/Significant Other Witness Date Prescriptions: Ketorolac Tromethamine [Toradol 10 mg Tablet] 10 mg PO Q6HP PRN #20 tablet PRN Reason: Referrals: AMBAR CUNHA MD [Primary Care Provider] - Discharge Diet: Other (Comments) - small bland meals then progress to regular diet slowly Discharge Activity: Activity As Tolerated, Walk Frequently Report the Following to Your Physician Immediately: Nausea, Vomiting, Increase in Pain, Fever over 101 Degrees, Unusual Bleeding, Redness, Drainage-Foul Smelling
[2018-07-29] MEDS: FENTANYL CITRATE INJ/PF 100 MCG/2 ML AMPUL ONE ×2 (15:26→15:31)
--- NOTE | 2018-07-29 15:34 | Operative Report ---
Operative Report DATE OF SURGERY: 07/29/18 PREOPERATIVE DIAGNOSIS: Biliary dyskinesia POSTOPERATIVE DIAGNOSIS: Same OPERATION: Laparoscopic cholecystectomy SURGEON: AMBAR TREVIÑO 1ST COAL SAMPLER: NAT GARCES ANESTHESIA: GA TISSUE REMOVED OR ALTERED: Gallbladder with contents COMPLICATIONS: None ESTIMATED BLOOD LOSS: Scant INTRAOPERATIVE FINDINGS: See below PROCEDURE: After obtaining informed consent, the patient was taken to the operating room. General Anesthesia was induced; the arms were extended, and the abdomen was exposed, and prepped and draped in a sterile fashion. Instrumentation was set up for laparoscopic cholecystectomy. Surgical plan and surgical timeout were conducted. A vertical incision was made above the umbilicus, and a verres needle was inserted uneventfully into the peritoneal cavity. Pneumoperitoneum was established. The verres needle was removed and a 5 mm trocar was inserted and a 5 mm flexible laparoscope was inserted. Visualization of the peritoneal cavity confirmed safe uneventful entry. Under direct visualization 3 additional 5 mm ports were established, one in the subxiphoid position and second in the subcostal position. Visualization of the hepatobiliary anatomy revealed no anatomic variations. A grasper was placed on the fundus of the gallbladder and the gallbladder is elevated over the right surface of the liver; a second grasper was used to grasp the infundibulum of the gallbladder. The neck of the gallbladder and junction with the cystic duct was dissected out. The Cystic artery was in its usual location medial and cephalad to the cystic duct. The cystic artery was surrounded with a right angle clamp, clipped twice proximally and divided with laparoscopic scissors. We now opened the triangle of Calot by dividing the peritoneal reflection on both the medial and lateral sides of the cystic duct infundibular junction. The critical view was obtained. We now milked the cystic duct of any possible stones, clipped the cystic duct approximately 2 times once distally and divided with scissors. The gallbladder was now removed from the undersurface of the liver using hook cautery dissection. Graspers were repositioned and the gallbladder was removed uneventfully from the abdominal cavity through the super umbilical port site incision. The specimen was examined, then passed off to pathology for permanent analysis. We returned to the peritoneal cavity check for bleeding, and evidence of bile leak, and there was none. We Confirmed satisfactory placement of clips on cystic duct and cystic artery were secured . At this point we felt the operation was complete. The subcutaneous tissue was then anesthetized with quarter percent Marcaine Sponge and needle counts are correct. All ports removed under direct visualization pneumoperitoneum evacuated, and 5 mm port wounds closed with 3-0 Vicryl suture, benzoin and Steri-Strips. The patient was extubated, and taken to the recovery room in stable condition. The physician phlebotomy lab assistant, Ms. Maier, provided assistance during this case by: Assisting and port insertion, retracting tissue, instillation of local anesthesia and closure of skin incisions.
[2018-07-29] MEDS ORDERED: KETOROLAC TROMETHAMINE INJ/PF 30 MG/1 ML SDV ONE (15:40)
[2018-07-29 17:11] VITALS: BP 103/65
== END 2018-07-29 17:05 | disposition home or self-care (01) ==
LOC: OROUT 09:30
PROVIDERS: ATTEND Surgery
DX: K81.1 Chronic cholecystitis (principal); Z87.891 Personal history of nicotine dependence
CPT/HCPCS: 36415; 82150; 85027; 81025; 80076; 80048; 88304 ×2; 47562; J2250; J3490 ×3; J0690; J1100; J3010 ×2; J1885; J2405; J2704; J0131; 790

== ENCOUNTER 2019-06-27 17:19 | Outpatient (CLI) | payer BC, MEDICAID | END 2019-06-27 18:05 | disposition home or self-care (01) | LOC: LC 17:19 | PROVIDERS: ATTEND Obstetrics & Gynecology | DX: Z34.93 Encounter for supervision of normal pregnancy, unspecified, third trimester (principal) ==

== ENCOUNTER 2019-07-08 14:08 | Outpatient (CLI) | payer BC, MEDICAID ==
[2019-07-08 14:47] LABS: ADD MANUAL MICROSCOPIC YES; APPEARANCE,URINE SLIGHTLY-CLOUDY; BILIRUBIN,URINE NEGATIVE (NEGATIVE); COLOR,URINE YELLOW; GLUCOSE, URINE NEGATIVE (NEGATIVE); KETONES,URINE TRACE mg/dL (NEGATIVE); LEUKOCYTE ESTERASE,URINE SMALL (NEGATIVE); NITRITE,URINE NEGATIVE (NEGATIVE); PROTEIN,URINE NEGATIVE (NEGATIVE); URINE SPECIFIC GRAVITY 1.024; UROBILINOGEN,URINE NEGATIVE mg/dL (<2.0)
[2019-07-08 15:01] LABS: BACTERIA,URINE 2+ /HPF
[2019-07-08 15:18] LABS: URINE AMPHETAMINES SCREEN NEGATIVE; URINE BARBITURATES SCREEN NEGATIVE; URINE BENZODIAZEPINES SCREEN NEGATIVE; URINE COCAINE SCREEN NEGATIVE; URINE MARIJUANA (THC) SCREEN NEGATIVE; URINE METHADONE SCREEN NEGATIVE; URINE PHENCYCLIDINE SCREEN NEGATIVE
--- NOTE | 2019-07-08 16:44 | RADIOLOGY REPORT (SQ) ---
EXAM DESCRIPTION: U/S OB LIMITED COMPLETED DATE/TIME: 07/08/2019 4:34 pm REASON FOR STUDY: cervical length pre term labor COMPARISON: None. TECHNIQUE: Limited transabdominal grayscale ultrasound for evaluation of specific requested obstetri stephane parameters. LIMITATIONS: None. FINDINGS: CERVICAL LENGTH: 4.2 cm. Closed. MAIRA: 9.6 cm. FHR: 152 beats per minute. PRESENTATION: Cephalic. PLACENTA: Anterior. ANATOMY: Not assessed OTHER: No other significant findings. IMPRESSION: LIMITED OBSTETRICAL ULTRASOUND WITH MEASURED PARAMETERS DELINEATED ABOVE. Trimester of : Third trimester - 28 weeks to delivery. TECHNICAL DOCUMENTATION: JOB ID: [id number] [employer]- All Rights Reserved Reading location - IP/workstation name: [email or web address]
[2019-07-08] MEDS: RINGERS SOLUTION,LACTATED 1,000 ML IV PRN ×2 (16:52→16:53)
== END 2019-07-08 17:54 | disposition home or self-care (01) ==
LOC: LC 14:08
PROVIDERS: ATTEND Student in an Organized Health Care Education/Training Program
PROC: 4A1HXCZ Monitoring of Products of Conception, Cardiac Rate, External Approach (ICD-10-PCS; principal; 2019-07-08)
DX: O47.03 False labor before 37 completed weeks of gestation, third trimester (principal); O99.283 Endocrine, nutritional and metabolic diseases complicating pregnancy, third trimester; E86.0 Dehydration; Z3A.32 32 weeks gestation of pregnancy
CPT/HCPCS: 76815; 80307; 81001

== ENCOUNTER 2019-08-18 03:39 | Outpatient (CLI) | payer BC, MEDICAID ==
[2019-08-18 04:38] LABS: APPEARANCE,URINE CLEAR; BILIRUBIN,URINE NEGATIVE (NEGATIVE); COLOR,URINE STRAW; GLUCOSE, URINE NEGATIVE (NEGATIVE); KETONES,URINE NEGATIVE (NEGATIVE); LEUKOCYTE ESTERASE,URINE NEGATIVE (NEGATIVE); NITRITE,URINE NEGATIVE (NEGATIVE); PROTEIN,URINE NEGATIVE (NEGATIVE); URINE SPECIFIC GRAVITY 1.005; UROBILINOGEN,URINE NEGATIVE mg/dL (<2.0)
[2019-08-18 05:14] LABS: URINE AMPHETAMINES SCREEN NEGATIVE; URINE BARBITURATES SCREEN NEGATIVE; URINE BENZODIAZEPINES SCREEN NEGATIVE; URINE COCAINE SCREEN NEGATIVE; URINE MARIJUANA (THC) SCREEN NEGATIVE; URINE METHADONE SCREEN NEGATIVE; URINE PHENCYCLIDINE SCREEN NEGATIVE
--- NOTE | 2019-08-18 06:04 | Non Stress Test Report ---
Non Stress Test Datetime Report Generated by CPN: 08/18/2019 06:04 DEMOGRAPHIC Test Number: 1 EGA NST: 38.3 EGA NST: 32.4 INDICATION Indication for Study: Ordered by Provider Indication for Study: labor; Ordered by Provider Indication for Study (NST) Other: LABOR CHECK VITAL SIGNS Temperature - NST: 98.4 Pulse - NST: 102 RESP - NST: 16 NBPSYS NST: 112 NBPDIA NST: 64 MONITORING Monitor Explained: Monitor Explained; Test Explained; Patient Verbalized Understanding Monitor Explained: Monitor Explained; Test Explained; Patient Verbalized Understanding Time on Monitor: 08/18/2019 03:34 Time on Monitor: 07/08/2019 14:31 Time off Monitor: 08/18/2019 05:01 Time off Monitor: 07/08/2019 15:55 NST Duration: 87 NST Duration: 84 NST INTERVENTIONS NST Interventions: PO Hydration NST Interventions: PO Hydration; IV Fluids; Reposition Patient Physician Notified NST: Dr. Newell Physician Notified NST: P Rousseau CNM BABY A: [id number] BABY A Movement : Present Contraction Frequency : irregular FHR Baseline : 135 FHR Baseline : 135 Accelerations : 15X15 Accelerations : 15X15 Decelerations : None Decelerations : None Variability : Moderate 6-25bpm Variability : Moderate 6-25bpm NST Review: Meets Criteria for Reactive NST NST Review and Verified By : Rashaun RN NST Review and Verified By : Sampson Bradford RN NST Results: Reactive NST REPORT Report Trigger: Send Report
== END 2019-08-18 06:03 | disposition home or self-care (01) ==
LOC: LC 03:39
PROVIDERS: ATTEND Student in an Organized Health Care Education/Training Program
PROC: 4A1HXCZ Monitoring of Products of Conception, Cardiac Rate, External Approach (ICD-10-PCS; principal; 2019-08-18)
DX: O47.1 False labor at or after 37 completed weeks of gestation (principal); Z3A.38 38 weeks gestation of pregnancy
CPT/HCPCS: 59025; 80307; 81005

== ENCOUNTER 2019-08-30 07:03 | Inpatient (IN) | payer BC, MEDICAID ==
[2019-08-30] MEDS ORDERED: OXYTOCIN 10 UNIT/ML VIAL ONE (07:19)
[2019-08-30] MEDS ORDERED: LIDOCAINE 1% INJ-PF (10 MG/ML) 30 ML SDV ONE (07:19)
[2019-08-30] MEDS ORDERED: MISOPROSTOL 0.2 MG TABLET ONE (07:19)
[2019-08-30] MEDS ORDERED: OXYTOCIN/NORMAL SALINE 20 UNIT/1,000 ML RTUINJ ONE (07:19)
[2019-08-30] MEDS ORDERED: PENICILLIN G-K 5 MILLION UNIT VIAL ONE (07:20)
--- NOTE | 2019-08-30 07:39 | Admission Physical ---
Datetime Report Generated by CPN: 08/30/2019 07:39 CURRENT ADMISSION Chief Complaint: Uterine Contractions Chief Complaint Other: Contractions this am with increasing intensitiy and frequency. Admit Impression : Active Labor Admit Plan: Admit to Unit; Initiate Labor Protocol ALLERGIES Medication Allergies: No Medication Allergies: No Known Allergies (08/18/2019) Latex: No Latex Allergies OBSTETRICAL HISTORY EDC: 08/29/2019 00:00 : 2 Para: 1 Term: 1 : 0 SAB: 0 IAB: 0 Livin Obstetrical History Comments: G1- G2- current SEE RECORDS Alcohol: No Marijuana : No Cocaine: No Other Illicit Drugs: No Cigarettes: Former Smoker. [id number] PHYSICAL EXAM General: Normal HEENT: Normal Neurologic: Normal Thyroid: Normal Heart: Normal Lungs: Normal Breast: Normal Back: Normal Abdomen: Normal Genitourinary Exam: Normal Extremities: Normal DTRs: Normal Pelvic Type: Adequate Vital Signs: Reviewed VAGINAL EXAM Dilatation: 4 Effacement: 70 Station: -1 Contraction Comments: Regular MEMBRANES Membranes: Ruptured Amniotic Fluid Color: Meconium, Light FETUS A EGA: 40.1 Monitoring: External US FHR- Baseline: 135 Variability: Moderate 6-25bpm Accelerations: 15X15 Decelerations: None FHR Category: Category I Admit Comment: 24 yo at 40.1 wks EGA in active labor. Regular ctx and rupture of membranes with light meconium stained fluid. -Admit to LDR -NPO with sips and ice chips only. -IVFs LR at 125 cc/hr -Labs pending -GBS negative -Rh positive ( B positive) -Prior x 1 -Anticipate PLANS FOR LABOR AND DELIVERY Labor and Delivery: None Pain Management: Epidural Feeding Preference: Breast Benefit of Breast Feed Discussed: Yes Circumcision: N/A INFORMED CONSENT Informed Consent Obtained: Vaginal Delivery; Risks, Benefits and Alternatives Discussed Signature: with User ID: Richi : with User ID: [email or web address]
[2019-08-30 07:55] LABS: ABSOLUTE EOSINOPHILS # (AUTO) 0.1 10^3/uL (0.0-0.6); ABSOLUTE MONOCYTES (AUTO) 0.5 10^3/uL (0.1-1.4); ABSOLUTE NEUT (AUTO) 6.7 10^3/uL (1.7-8.2); BASOPHILS % (AUTO) 0.2 % (0-2); HEMATOCRIT 33.4 % (36.0-47.0); HEMOGLOBIN 11.1 g/dL (12.0-15.5); LYMPHOCYTES % (AUTO) 21.5 % (13-45); MEAN CORPUSCULAR HEMOGLOBIN 26.9 pg (27.0-33.4); MEAN CORPUSCULAR HGB CONC 33.2 g/dL (32.0-36.0); MEAN CORPUSCULAR VOLUME 81 fl (80-97); MONOCYTES % (AUTO) 5.5 % (3-13); PLATELET COUNT 209 10^3/uL (150-450); RED BLOOD COUNT 4.12 10^6/uL (3.72-5.28); RED CELL DISTRIBUTION WIDTH 14.9 % (11.5-14.0); SEGMENTED NEUTROPHILS % (AUTO) 71.8 % (42-78); TOTAL CELLS COUNTED % (AUTO) 100 %; WHITE BLOOD COUNT 9.4 10^3/uL (4.0-10.5)
[2019-08-30] MEDS ORDERED: NA PHOS,M-B/NA PHOS,DI-BA (ADULT) 133 ML ENEMA PR PRN (08:06)
[2019-08-30] MEDS ORDERED: PROMETHAZINE HCL 25 MG TABLET PO PRN (08:06)
[2019-08-30] MEDS ORDERED: MAGNESIUM HYDROXIDE SUSP 30 ML UDCUP PO PRN (08:06)
[2019-08-30] MEDS ORDERED: BENZOCAINE/MENTHOL AEROSOL SPRAY 56 ML TOP PRN (08:06)
[2019-08-30] MEDS ORDERED: DIBUCAINE 1% OINTMENT 56 GM TP PRN (08:06)
[2019-08-30] MEDS ORDERED: GLYCERIN/WITCH HAZEL LEAF 1 EACH MED..WIPE TP PRN (08:06)
[2019-08-30] MEDS ORDERED: OXYTOCIN/NORMAL SALINE 20 UNIT/1,000 ML RTUINJ IV PRN (08:06)
[2019-08-30] MEDS ORDERED: DIPH/PERTUSS(ACELL)/TETANUS VAC/PF 0.5 ML SYR (>=10YO) IM PRN (08:06)
[2019-08-30] MEDS ORDERED: PSEUDOEPHEDRINE HCL 30 MG TABLET PO PRN (08:06)
[2019-08-30] MEDS ORDERED: PROMETHAZINE HCL 25 MG SUPP.RECT PR PRN (08:06)
[2019-08-30] MEDS ORDERED: MEASLES,MUMPS&RUBELLA VACC/PF 0.5 ML VIAL SUBCUT PRN (08:06)
[2019-08-30] MEDS ORDERED: ACETAMINOPHEN 650 MG SUPP.RECT PR PRN (08:06)
[2019-08-30] MEDS ORDERED: PROMETHAZINE HCL INJ 25 MG/1 ML VIAL IV PRN (08:06)
[2019-08-30] MEDS ORDERED: DIPHENHYDRAMINE HCL 25 MG CAPSULE PO PRN (08:06)
[2019-08-30] MEDS ORDERED: ACETAMINOPHEN WITH CODEINE #3 TABLET ONE (08:42)
[2019-08-30] MEDS: ACETAMINOPHEN WITH CODEINE #3 TABLET PO PRN (08:44)
--- NOTE | 2019-08-30 09:30 | Delivery Summary ---
Del Sum A-C Datetime Report Generated by CPN: 08/30/2019 09:29 DELIVERY PERSONNEL DELIVERY PERSONNEL: [id number] Delivery Doctor:: Laurel Costa CNM Labor and Delivery Nurse:: Delores Aguero RNtool and equipment rental clerk Nurse:: Swathi Benavides RN Nursery Nurse:: Chika Moran RNC MATERNAL INFORMATION Delivery Anesthesia: None Medications After Delivery: Pitocin Bolus-Please Comment; Cytotec 200mcg Per Rectum/Vagina Delivery QBL: 400 Maternal Complications: Precipitous Labor (<3hrs) Provider Comments: of viable male infant, meconium stained fluid noted, baby crying, placed on mothers abdoman in stable condition, bulb suctioned of the mouth. nursery RN at bedside to evaluate baby. Cord clamped and cut after one minute, cord blood collected. Small hemostatic perineal laceration noted, no repair needed. PLacenta S/C/I, IV Pitocin infusing, 200 mcg SL cytotec given for lower uterine segment atony. QBL 400 ml, Apgars 8, 9. Baby and mother left in stable condition, she plans to breastfeed. Dr Fletcher is the attending MD today. LABOR SUMMARY EDC: 08/29/2019 00:00 No. Babies in Womb: 1 Attempted: No Labor Anesthesia: None LABOR INFORMATION Reason for Induction: Not Applicable Onset of Labor: 08/30/2019 04:00 Complete Dilatation: 08/30/2019 08:03 Oxytocin: N/A Group B Beta Strep: negative Antibiotics # of Doses: 1 Name of Antibiotic Given: PCN Steroids Given: None Reason Steroids Not Administered: Not Applicable MEMBRANES Membranes Rupture Method: Spontaneous Rupture of Membranes: 08/30/2019 07:00 Length of Rupture (hr): 1.13 Amniotic Fluid Color: Moderate Meconium Amniotic Fluid Amount: Small Amniotic Fluid Odor: Normal STAGES OF LABOR Stage 1 hr: 4 Stage 1 min: 3 Stage 2 hr: 0 Stage 2 min: 5 Stage 3 hr: 0 Stage 3 min: 6 Total Time in Labor hr: 4 Total Time in Labor min: 14 VAGINAL DELIVERY Episiotomy: None Laceration #1: None Laceration Extension #1: N/A Other Laceration: perineal abrasion Laceration Repair: Not Applicable Sponge Count Correct: N/A Sharps Count Correct: N/A BABY A INFORMATION Delivery Date/Time: 08/30/2019 08:08 Method of Delivery: Vaginal Born in Route : No : N/A Forceps: N/A Vacuum Extraction: N/A Shoulder Dystocia : No PRESENTATION/POSITION BABY A Presentation: Cephalic Cephalic Presentation: Vertex Vertex Position: Left Occipital Anterior Breech Presentation: N/A PLACENTA INFORMATION BABY A Placenta Delivery Time : 08/30/2019 08:14 Placenta Method of Delivery: Spontaneous Placenta Status: Delivered SCORES BABY A Heart Rate 1 min: >100 bpm Resp Effort 1 min: Good Cry Reflex Irritability 1 min: Cough or Sneeze or Pulls Away Muscle Tone 1 min: Active Motion Color 1 min: Blue/Pale Resuscitation Effort 1 min: Tactile Stimulation SCORE 1 MIN: 8 Heart Rate 5 min: >100 bpm Resp Effort 5 min: Good Cry Reflex Irritability 5 min: Cough or Sneeze or Pulls Away Muscle Tone 5 min: Active Motion Color 5 min: Body Randolph, Extremities Blue Resuscitation Effort 5 min: Tactile Stimulation SCORE 5 MIN: 9 INFORMATION BABY A Gestational Age at Delivery: 40.1 Gestational Status: Full Term- 39- 40.6 Weeks Infant Outcome : Liveborn Condition : Stable Infant Sex: Male IDENTIFICATION BABY A Infant Verification Date/Time: 08/30/2019 08:45 ID Band Number: [id number] Mother's Name Verified: Yes Infant RN Verifying : Esther Aguero RN Lyndsay Phelps RN CORD INFORMATION BABY A No. Cord Vessels: 3 Nuchal Cord : N/A Cord Blood Taken: Yes-For Storage (Mom's Blood type +) Infant Suction: None ASSESSMENT BABY A Complications: Meconium Physical Findings at Delivery: Within Normal Limits Skin to Skin: Yes Skin to Skin Time (min): 60 Photographers' Model/ALS Called : No Care By: Linnette Bowman RN Transferred To: Remains with Mother BABY B INFORMATION : N/A SIGNATURES Assignment: Christian Fletcher MD Signature: with User ID: Teresa : with User ID: [email or web address]
[2019-08-30] MEDS: FERROUS SULFATE 325 MG TABLET PO SCH ×2 (09:39→17:52)
[2019-08-30] MEDS: PRENATAL VITAMIN W DHA CAPSULE PO SCH (09:39)
[2019-08-30] MEDS: FAMOTIDINE 20 MG TABLET PO SCH ×2 (09:39→21:24)
[2019-08-30] MEDS: DOCUSATE SODIUM 100 MG CAPSULE PO SCH ×2 (09:39→17:52)
[2019-08-30 10:13] LABS: APPEARANCE,URINE CLEAR; BILIRUBIN,URINE NEGATIVE (NEGATIVE); COLOR,URINE YELLOW; GLUCOSE, URINE NEGATIVE (NEGATIVE); KETONES,URINE 20 mg/dL (NEGATIVE); LEUKOCYTE ESTERASE,URINE NEGATIVE (NEGATIVE); NITRITE,URINE NEGATIVE (NEGATIVE); PROTEIN,URINE NEGATIVE (NEGATIVE); URINE SPECIFIC GRAVITY 1.021; UROBILINOGEN,URINE NEGATIVE mg/dL (<2.0)
[2019-08-30 10:42] LABS: URINE AMPHETAMINES SCREEN NEGATIVE; URINE BARBITURATES SCREEN NEGATIVE; URINE BENZODIAZEPINES SCREEN NEGATIVE; URINE COCAINE SCREEN NEGATIVE; URINE MARIJUANA (THC) SCREEN NEGATIVE; URINE METHADONE SCREEN NEGATIVE; URINE PHENCYCLIDINE SCREEN NEGATIVE
[2019-08-30] MEDS: IBUPROFEN 800 MG TABLET PO SCH ×3 (12:22→21:24)
[2019-08-31] MEDS: ACETAMINOPHEN WITH CODEINE #3 TABLET PO PRN ×2 (03:51→21:17)
[2019-08-31] MEDS: IBUPROFEN 800 MG TABLET PO SCH ×3 (05:12→21:18)
[2019-08-31 06:49] LABS: HEMATOCRIT 27.9 % (36.0-47.0); HEMOGLOBIN 9.4 g/dL (12.0-15.5); MEAN CORPUSCULAR HEMOGLOBIN 27.1 pg (27.0-33.4); MEAN CORPUSCULAR HGB CONC 33.7 g/dL (32.0-36.0); MEAN CORPUSCULAR VOLUME 81 fl (80-97); PLATELET COUNT 181 10^3/uL (150-450); RED BLOOD COUNT 3.46 10^6/uL (3.72-5.28); RED CELL DISTRIBUTION WIDTH 14.7 % (11.5-14.0); WHITE BLOOD COUNT 9.5 10^3/uL (4.0-10.5)
[2019-08-31] MEDS: DOCUSATE SODIUM 100 MG CAPSULE PO SCH ×2 (09:56→17:33)
[2019-08-31] MEDS: FERROUS SULFATE 325 MG TABLET PO SCH ×2 (09:56→17:33)
[2019-08-31] MEDS: FAMOTIDINE 20 MG TABLET PO SCH ×2 (09:56→21:18)
[2019-08-31] MEDS: PRENATAL VITAMIN W DHA CAPSULE PO SCH (09:56)
--- NOTE | 2019-08-31 14:41 | PDOC PROGRESS REPORT ---
Subjective-OB Progress Note for:: 08/31/19 Subjective: reports bleeding slowing, pain controlled with current meds, denies needs Physical Exam (OB) Vital Signs: Temp Pulse Resp BP Pulse Ox 97.9 F 66 16 100/49 L 100 08/31/19 07:33 08/31/19 07:33 08/31/19 07:33 08/31/19 07:33 08/31/19 07:33 Intake & Output 08/30/19 08/31/19 09/01/19 06:59 06:59 06:59 Intake Total 600 Balance 600 Weight 89.4 kg - Abdomen Description: Soft, Round Hernia Present: No Fundal Description: Firm, Midline Fundal Height: u/u - u/2 - Abdominal Distension: No distension Tenderness: Nontender - Extremities Lower extremities: Yovana's sign - neg Calf: Normal, Nontender Objective-Diagnostic Laboratory: 08/31/19 06:20 08/31/19 06:20 WBC 9.5 RBC 3.46 L Hgb 9.4 L Hct 27.9 L MCV 81 MCH 27.1 MCHC 33.7 RDW 14.7 H Plt Count 181 Assessment and Plan(PN) - Assessment and Plan (1) Vaginal delivery Is this a current diagnosis for this admission?: Yes - Time Spent with Patient Time with patient: Less than 15 minutes Medications reviewed and adjusted accordingly: Yes - Disposition Anticipated Discharge: Home Within: within 24 hours
[2019-09-01] MEDS: IBUPROFEN 800 MG TABLET PO SCH ×2 (06:09→13:49)
[2019-09-01] MEDS ORDERED: INFLUENZA QUAD (6MOS+) 2019-20 VAC 0.5 ML SYR IM ONE (08:00)
[2019-09-01 08:40] VITALS: BP 93/51
[2019-09-01] MEDS: PRENATAL VITAMIN W DHA CAPSULE PO SCH (09:20)
[2019-09-01] MEDS: FERROUS SULFATE 325 MG TABLET PO SCH (09:20)
[2019-09-01] MEDS: ACETAMINOPHEN WITH CODEINE #3 TABLET PO PRN (09:20)
[2019-09-01] MEDS: FAMOTIDINE 20 MG TABLET PO SCH (09:20)
[2019-09-01] MEDS: DOCUSATE SODIUM 100 MG CAPSULE PO SCH (09:20)
--- NOTE | 2019-09-01 14:15 | PDOC DISCHARGE SUMMARY ---
Impression - Admit/DC Date/PCP Admission Date/Primary Care Provider: 08/30/19 07:17 AMBAR CUNHA MD Discharge Date: 09/01/19 - Discharge Diagnosis (2) Vaginal delivery Is this a current diagnosis for this admission?: Yes - Additional Information Resuscitation Status: Full Code Discharge Diet: As Tolerated, Regular Discharge Activity: Activity As Tolerated, Balance Activity w/Rest, No Lifting Over 10 Pounds, Pelvic Rest, No tub bath, Walk Frequently Referrals: AMBAR CUNHA MD [Primary Care Provider] - Prescriptions: Ibuprofen [Motrin 800 mg Tablet] 800 mg PO Q8HP PRN #30 tablet PRN Reason: Abdominal Cramping Docusate Sodium [Colace 100 mg Capsule] 100 mg PO BID #60 capsule Ferrous Sulfate [Feosol 325 mg Tablet] 325 mg PO BID #60 tablet Home Medications: 95/Iron Fum/Folic/Dha [ + Dha Combo Pack] 1 tab PO DAILY 07/08/19 Docusate Sodium [Colace 100 mg Capsule] 100 mg PO BID #60 capsule 09/01/19 Ferrous Sulfate [Feosol 325 mg Tablet] 325 mg PO BID #60 tablet 09/01/19 Ibuprofen [Motrin 800 mg Tablet] 800 mg PO Q8HP PRN #30 tablet 09/01/19 Results Laboratory Results: WBC 9.5 10^3/uL (4.0-10.5) 08/31/19 06:20 RBC 3.46 10^6/uL (3.72-5.28) L 08/31/19 06:20 Hgb 9.4 g/dL (12.0-15.5) L 08/31/19 06:20 Hct 27.9 % (36.0-47.0) L 08/31/19 06:20 MCV 81 fl (80-97) 08/31/19 06:20 MCH 27.1 pg (27.0-33.4) 08/31/19 06:20 MCHC 33.7 g/dL (32.0-36.0) 08/31/19 06:20 RDW 14.7 % (11.5-14.0) H 08/31/19 06:20 Plt Count 181 10^3/uL (150-450) 08/31/19 06:20 Lymph % (Auto) 21.5 % (13-45) 08/30/19 07:32 [place] % (Auto) 5.5 % (3-13) 08/30/19 07:32 Eos % (Auto) 1.0 % (0-6) 08/30/19 07:32 Baso % (Auto) 0.2 % (0-2) 08/30/19 07:32 Absolute Neuts (auto) 6.7 10^3/uL (1.7-8.2) 08/30/19 07:32 Absolute Lymphs (auto) 2.0 10^3/uL (0.5-4.7) 08/30/19 07:32 Absolute Monos (auto) 0.5 10^3/uL (0.1-1.4) 08/30/19 07:32 Absolute Eos (auto) 0.1 10^3/uL (0.0-0.6) 08/30/19 07:32 Absolute Basos (auto) 0.0 10^3/uL (0.0-0.2) 08/30/19 07:32 Seg Neutrophils % 71.8 % (42-78) 08/30/19 07:32 Urine Color YELLOW 08/30/19 09:07 Urine Appearance CLEAR 08/30/19 09:07 Urine pH 5.0 (5.0-9.0) 08/30/19 09:07 Ur Specific [place] 1.021 08/30/19 09:07 Urine Protein NEGATIVE mg/dL (NEGATIVE) 08/30/19 09:07 Urine Glucose (UA) NEGATIVE mg/dL (NEGATIVE) 08/30/19 09:07 Urine Ketones 20 mg/dL (NEGATIVE) H 08/30/19 09:07 Urine Blood LARGE (NEGATIVE) H 08/30/19 09:07 Urine Nitrite NEGATIVE (NEGATIVE) 08/30/19 09:07 Urine Bilirubin NEGATIVE (NEGATIVE) 08/30/19 09:07 Urine Urobilinogen NEGATIVE mg/dL (<2.0) 08/30/19 09:07 Ur Leukocyte Esterase NEGATIVE (NEGATIVE) 08/30/19 09:07 Urine Ascorbic Acid NEGATIVE (NEGATIVE) 08/30/19 09:07 Urine Opiates Screen NEGATIVE 08/30/19 09:07 Urine Methadone Screen NEGATIVE 08/30/19 09:07 Ur Barbiturates Screen NEGATIVE 08/30/19 09:07 Ur Phencyclidine Scrn NEGATIVE 08/30/19 09:07 Ur Amphetamines Screen NEGATIVE 08/30/19 09:07 U Benzodiazepines Scrn NEGATIVE 08/30/19 09:07 Urine Cocaine Screen NEGATIVE 08/30/19 09:07 U Marijuana (THC) Screen NEGATIVE 08/30/19 09:07 RPR NONREACTIVE (NONREACTIVE) 08/30/19 07:32 Blood Type B POSITIVE 08/30/19 07:32 Antibody Screen NEGATIVE 08/30/19 07:32
== END 2019-09-01 15:00 | disposition home or self-care (01) | DRG 807 ==
LOC: LC 07:03 → LR 07:17 → 2S 09:17
PROVIDERS: ADMIT Obstetrics & Gynecology Gynecology; ATTEND Obstetrics & Gynecology Gynecology
PROC: 10E0XZZ Delivery of Products of Conception, External Approach (ICD-10-PCS; principal; 2019-08-30)
PROC: 3E02340 Introduction of Influenza Vaccine into Muscle, Percutaneous Approach (ICD-10-PCS; 2019-09-01)
DX: O62.3 Precipitate labor (principal); Z37.0 Single live birth; O62.2 Other uterine inertia; O77.0 Labor and delivery complicated by meconium in amniotic fluid; Z3A.40 40 weeks gestation of pregnancy; Z23 Encounter for immunization; Z87.891 Personal history of nicotine dependence
CPT/HCPCS: 36415; 80307; 81005; 85025; 85027; 86592; 86850; 86900; 86901; 88307; 90686; J2540; J2590; J3490